=== PATIENT | female | born 1995 | race Caucasian/White ===

== ENCOUNTER 2018-09-01 22:46 | Emergency (ER) | payer OTHER ==
[~2018-09-01] VITALS: Ht 172.7 cm; Wt 59.0 kg
[2018-09-02] MEDS ORDERED: DUI500 PO (00:43)
[2018-09-02] MEDS ORDERED: ORASEP SPRAY30 ML MM (00:43)
== END 2018-09-02 01:55 ==
LOC: ER 22:46
DX: J02.8 Acute pharyngitis due to other specified organisms (principal)